=== PATIENT | female | born 1955 | race Caucasian/White ===

== ENCOUNTER 2019-09-24 21:09 | Emergency (ER) | payer BC, SELFPAY ==
[2019-09-24 21:21] VITALS: BP 217/98; PULSE 89; RESP 22; TEMP 36.8; O2SAT 96; BMI 28.8
--- NOTE | 2019-09-24 21:24 | ED_ITS ---
HPI - Allergic Reaction General Chief complaint: Allergic Reaction Stated complaint: penicilin, numb lips, tingling back of throat Time Seen by Provider: 09/24/19 21:15 History of Present Illness HPI narrative: 64-year-old woman who is having an abscess on her left buttock cheek treated. It was I&D and then initially treated with Septra. She went in to have the dressing changed today and culture showed penicillin sensitive strep so she was switched from Septra to penicillin. Within an hour of taking the 1st dose of penicillin she has noticed numbness and tingling around her lips and some tightness through her throat without wheezing, rash or other symptoms. She took 50 mg of Benadryl and reported to the emergency department. Related Data Home Medications Medication Instructions Recorded Confirmed No Known Home Medications 11/24/17 11/24/17 Allergies Allergy/AdvReac Type Severity Reaction Status Date / Time No Known Drug Allergies Allergy Verified 11/24/17 15:49 Review of Systems Review of Systems Narrative: Pertinent positive and negative findings as per HPI Remainder of review of systems is otherwise unremarkable for Constitutional: Fevers, chills, weakness ENT: No sore throat, neck pain, ear pain CV: Chest pain, palpitations, dyspnea on exertion Respiratory: Cough, wheeze, dyspnea GI: Nausea, vomiting, diarrhea, change in bowel habits, black or bloody stools : Dysuria, hematuria, flank pain MS: Muscle weakness, numbness, joint swelling or warmth Skin: Rashes, nonhealing lesions Neuro: Syncope, dizziness, Patient History Medical History Abscess of left buttock (Acute) Acute allergic reaction (Acute) Social History Smoking Status: Never smoker alcohol intake: current (Social) substance use type: does not use Smoking Status: Never smoker Exam Narrative Exam Narrative: General: Alert appropriate in no acute distress HEENT: Normal sclera, reactive pupils, no obvious swelling or induration in the oropharynx or posterior pharynx Respiratory: Able to speak in full sentences, no obvious respiratory distress, no wheezes no rhonchi Skin: No obvious rashes, warm and dry Neurologic: Grossly intact no obvious asymmetries or abnormalities Psych, appropriate insight and affect, cooperative Initial Vital Signs Initial Vital Signs: Vital Signs Temperature 98.3 F 09/24/19 21:21 Pulse Rate 89 09/24/19 21:21 Respiratory Rate 22 09/24/19 21:21 Blood Pressure 217/98 H 09/24/19 21:21 Pulse Oximetry 96 09/24/19 21:21 Course Orders Ordered: Discontinued Medications Prednisone (Deltasone) 60 mg PO NOW ONE Stop: 09/24/19 21:31 Last Admin: 09/24/19 21:33 Dose: 60 mg Documented by: FRANK Vital Signs Vital signs: Vital Signs - 8 hr 09/24/19 21:21 09/24/19 22:01 Temperature 98.3 F Pulse Rate 89 69 Respiratory Rate 22 12 Blood Pressure 217/98 H Blood Pressure [Left Arm] 150/72 H Pulse Oximetry 96 98 MDM - Allergic Reaction MDM Narrative Medical decision making narrative: Patient has an abscess that is been drained was improving culture so penicillin sensitive strep which should be sensitive to Septra as well. With the acute allergic reaction to penicillin, will have her just continue the Septra and routine wound care. Symptoms have completely resolved after the Benadryl and 60 mg of oral prednisone in the emergency department. Because it was a single dose I do not believe that she is going to need additional treatment or steroid taper. Patient is safe for home discharge Discharge Plan Departure Patient Disposition: Home Clinical Impression: Allergic reaction Qualifiers: Encounter type: initial encounter Qualified Code(s): T78.40XA - Allergy, unspecified, initial encounter Instructions: DI for Anaphylaxis Activity Restrictions/Additional Instructions: Thank you for coming in today. You did exactly the right thing by taking Benadryl when he started noticing the tingling in her lips and tightness in the back of your throat. You were given an additional single dose of steroid in the emergency room and continued to improve. Please consider penicillin, the entire family of antibiotics, as an official allergy Please restart the Septra that you have at home and do keep all of your follow- up appointments for the dressing changes for the abscess healing. I hope you continue to heal nicely. Prescriptions: No Action No Known Home Medications RF: 0 Referrals: Malvin Coon ND [Primary Care Provider] -
[2019-09-24] MEDS: predniSONE 20 MG TABLET 60 MG PO (21:33)
[2019-09-24 22:01] VITALS: BP 150/72; PULSE 69; RESP 12; O2SAT 98
== END 2019-09-24 22:10 | disposition home or self-care (01) ==
PROVIDERS: Emergency Provider Emergency Medicine; Family Provider Registered Nurse; PCP Registered Nurse
DX: R20.2 Paresthesia of skin (principal); T36.0X5A Adverse effect of penicillins, initial encounter
CPT/HCPCS: 99283

== ENCOUNTER → 2020-07-27 10:00 | Outpatient (CLI) | payer BC, SELFPAY ==
[2020-07-27] MEDS: COVID-19 VACC #1, MRNA(MOD) 100 MCG/0.5 ML VIAL IM (10:10)
[2020-07-27] MEDS: diphenhydrAMINE 25 MG TABLET 50 MG PO (10:27)
--- NOTE | 2020-07-27 11:49 | PC.NURSE ---
10 27 given 50 mg Benadryl po for c/0 facial numbness ,chest flushing, feeling anxious and blood pressure 237/ 125... taken to ER via wheelchair
== END ==
PROVIDERS: Family Provider Registered Nurse; PCP Registered Nurse; Visit Provider Internal Medicine
DX: Z23 Encounter for immunization (principal)
CPT/HCPCS: 0011A; 91301

== ENCOUNTER 2020-07-27 10:29 | Emergency (ER) | payer BC, SELFPAY ==
[2020-07-27 10:28] VITALS: BP 206/99; PULSE 86; RESP 14; TEMP 36.6; O2SAT 96; BMI 30.6
[2020-07-27] MEDS: predniSONE 20 MG TABLET 60 MG PO (10:34)
[2020-07-27 10:50] VITALS: PULSE 81; O2SAT 96
[2020-07-27 11:00] VITALS: BP 171/78; PULSE 75; O2SAT 95
--- NOTE | 2020-07-27 11:18 | PC.NURSE ---
Pt feeling better,bp improving,tingling in lips is gone and pt feels like her lips are not swollen.
--- NOTE | 2020-07-27 11:45 | ED.ALLEREA ---
HPI - Allergic Reaction General Chief complaint: Allergic Reaction Stated complaint: allergic reaction Time Seen by Provider: 07/27/20 10:31 Source: patient Mode of arrival: Wheelchair Limitations: no limitations History of Present Illness HPI narrative: This is a 65-year-old female comes emergency department with complaint of allergic reaction. Patient her COVID immunization. This was the 1st immunization. This was at about 10 10 or 10 15 she has developed numbness of her lips within 5-10 minutes. Patient was monitored given 2 tablets of Benadryl at the immunization clinic and then referred to us. Patient has not had any additional symptoms. She did know her blood pressure is very high on arrival. Patient states she has had reactions to a flu vaccine in the past with similar tingling and numbness of her lips. She also has noticed that she sometime had tingling in her lips with other exposures such as corn syrup. Patient is also allergic to penicillin which she developed a rash in allergy after a at least a 2nd exposure to penicillin. She denies other medical issues. Patient states that her symptoms have resolved while she has been here. She denies any swelling of her lips, tongue or airway. She denies any swelling in her extremities. No rash. No pruritus. No tingling elsewhere. Patient states with her prior immunization reaction within influenza shot she had tingling received Benadryl and prednisone without any further treatment and her symptoms resolved and never reoccurred. Related Data Home Medications Medication Instructions Recorded Confirmed No Known Home Medications 11/24/17 11/24/17 Allergies Allergy/AdvReac Type Severity Reaction Status Date / Time Penicillins Allergy Verified 07/27/20 10:35 Review of Systems Review of Systems ROS Unobtainable: All systems reviewed & are unremarkable except as noted in HPI and below Patient History Medical History (Updated 07/27/20 @ 12:16 by Abby Yu DO) Abscess of left buttock Acute allergic reaction Social History Smoking Status: Never smoker alcohol intake: current (Social) substance use type: does not use Smoking Status: Never smoker alcohol intake frequency: holidays/special occasions only Substance Use Type: does not use Exam Narrative Exam Narrative: GEN: well nourished, well appearing female, alert and oriented x 3, patient appears to be in mild distress. HEENT: Atraumatic, pupils are equal round reactive to light, extraocular movements are intact, nares are clear, Throat is clear without any exudates, erythema, tonsillar enlargement or uvular deviation, no swelling of the lips, oropharynx or face. HEART: Regular rate and rhythm without murmur, clicks, rubs. LUNGS:Lungs clear to auscultation, no wheezes, rales, crackles, chest moves symmetrically ABD:bowel sounds normal, soft, non-tender, no guarding, rebound, rigidity, no masses noted, no hepatosplenomegaly MSCL: Full range of motion, normal gait NEURO:CN 2-12 intact, sensation normal SKIN: Skin no rash, or other hives noted. Initial Vital Signs Initial Vital Signs: Vital Signs Temperature 97.9 F 07/27/20 10:28 Pulse Rate 86 07/27/20 10:28 Respiratory Rate 14 07/27/20 10:28 Blood Pressure 206/99 H 07/27/20 10:28 Pulse Oximetry 96 07/27/20 10:28 Course Orders Ordered: Discontinued Medications Prednisone (Prednisone 20 Mg Tablet) 60 mg PO NOW ONE Stop: 07/27/20 10:32 Last Admin: 07/27/20 10:34 Dose: 60 mg Documented by: TIFFANYOTESari Vital Signs Vital signs: Vital Signs - 8 hr 07/27/20 10:28 07/27/20 10:50 07/27/20 11:00 Temperature 97.9 F Pulse Rate 86 81 75 Respiratory Rate 14 Blood Pressure 206/99 H 171/78 H Pulse Oximetry 96 96 95 MDM - Allergic Reaction MDM Narrative Medical decision making narrative: Discussed with patient she may have had a reaction to her immunization unclear if it is a true allergic reaction. She did have improvement after Benadryl and prednisone here in the department. Patient was recommended discussed with her physician about whether she should receive the 2nd immunization and would defer that to her in her physician's judgement. I did recommend that she discuss with a [facility] prior to her 2nd vaccine and they may wish to watch her for a longer period of time. Discharge Plan Departure Patient Disposition: Home Clinical Impression: Immunization reaction Instructions: DI for Immunization Reaction-Adult Activity Restrictions/Additional Instructions: Follow with your physician regarding if you should have your 2nd COVID vaccination. You may repeat your Benadryl 1-2 tablets every 6-8 hours if you have any recurrent tingling of your lips. If you have recurrent swelling of her lips, airway, tongue, face, hives or rash, new chest pain, shortness of breath, lightheadedness or passing out, persistent vomiting or other new or concerning symptoms return immediately to the emergency department. Prescriptions: No Action No Known Home Medications RF: 0 Referrals: Malvin Coon ND [Primary Care Provider] -
[2020-07-27 12:34] VITALS: BP 178/86; PULSE 76; RESP 16; O2SAT 96
== END 2020-07-27 12:34 | disposition home or self-care (01) ==
PROVIDERS: Emergency Provider Emergency Medicine; Family Provider Registered Nurse; PCP Registered Nurse
DX: T78.40XA Allergy, unspecified, initial encounter (principal)
CPT/HCPCS: 99283

== ENCOUNTER → 2020-08-24 10:05 | Outpatient (CLI) | payer BC, SELFPAY ==
[2020-08-24] MEDS: COVID-19 VACC #2, MRNA(MOD) 100 MCG/0.5 ML VIAL IM (10:17)
--- NOTE | 2020-08-24 10:41 | PC.NURSE ---
Patient stated that when she received her first Moderna vaccine she experienced numbness of her lips. She had been taken to the ED and received an RX for steroid. For the second vaccine patient was started in the recline in a semi-recumbent position. pre-vaccine blood pressure at 10:13 was 225/106 patient stated she was very nervous. Vaccine administered at 10:17 -- Blood pressure down to 204/88 10:22 - Bp 174/81 10:31 - BP 162/77 10:39 - BP 156/72 Denied numbness of lips or lightheadedness. Stated she felt good. Patient released at 10:45 without problem.
== END ==
PROVIDERS: Family Provider Registered Nurse; PCP Registered Nurse; Visit Provider Internal Medicine
DX: Z23 Encounter for immunization (principal)
CPT/HCPCS: 0012A; 91301

== ENCOUNTER → 2021-12-04 11:45 | Outpatient (CLI) | payer BC, SELFPAY | PROVIDERS: Family Provider Registered Nurse; PCP Registered Nurse; Referring Provider Registered Nurse; Visit Provider Registered Nurse | DX: Z13.820 Encounter for screening for osteoporosis (principal); Z78.0 Asymptomatic menopausal state; M85.89 Other specified disorders of bone density and structure, multiple sites; Z90.710 Acquired absence of both cervix and uterus | CPT/HCPCS: 77080 ==

== ENCOUNTER 2022-09-21 10:41 | Day surgery (SDC) | payer MEDICARE, OTHER, SELFPAY ==
--- NOTE | 2022-09-21 | PATH_ITS ---
[facility] Accession Number: [id number] No. of containers..02 Tissue . 01 Material submitted: . PART A: gastrointestinal site - ANTRUM PART B: esophagus, E-G Junction - GE JUNCTION . 01 Diagnosis: A. Stomach, Biopsy: Gastric antral mucosa with mild chronic inflammation. Negative for Helicobacter organisms by immunohistochemistry. Negative for intestinal metaplasia. Negative for dysplasia or malignancy. . B. Gastroesophageal Junction, Biopsy: Squamocolumnar junctional mucosa with mild reactive features of reflux esophagitis. Negative for specialized intestinal metaplasia on alcian blue stain. Negative for dysplasia or malignancy. [facility] 09/27/2022 1441 Local . 01 Electronically signed: . Natanael Balbuena MD, PhD, Pathologist NPI- [id number] . 01 Gross description: . Part A: ANTRUM: Received in formalin is 1 fragment(s) of penaloza, soft tissue measuring 0.4 x 0.2 x 0.2 cm submitted entirely in 1 cassette(s) Part B: GE JUNCTION: Received in formalin is 1 fragment(s) of penaloza, soft tissue measuring 0.4 x 0.3 x 0.2 cm submitted entirely in 1 cassette(s) /[facility] 09/24/2022 1617 Local . 01 Microscopic: . A. An immunohistochemical stain was performed to evaluate for Helicobacter organisms and is negative. The control stain showed appropriate reactivity. . B. An alcian blue stain is performed to evaluate for specialized intestinal metaplasia, and is negative for goblet cells. A control stain shows appropriate reactivity. . * This test was developed and its performance characteristics determined by [facility]. It has not been cleared or approved by the U.S. Food and Drug Administration. The FDA has determined that such clearance or approval is not necessary. This test is used for clinical purposes. It should not be regarded as investigational or for research. . 01 Pathologist provided ICD-10: K29.70, K20.80 . 01 CPT . 398900, 954061, M87724, 654549 Specimen Comment: A courtesy copy of this report has been sent to [facility] Pathology Performed at: 01 [facility] [address] [place] [address], [place], [place] [id number] MD Fredrick Izquierdo MD Phone: [phone]
[2022-09-21 11:06] VITALS: BP 160/93; PULSE 87; RESP 17; TEMP 36.4; O2SAT 96; BMI 26.9
[2022-09-21] MEDS: LACTATED RINGERS 1,000 ML 42 ML IV (11:16)
--- NOTE | 2022-09-21 12:28 | PM.PREOP ---
Pre-operative Note Interval Note History & Physical reviewed/Exam performed by Physician: Yes Changes to H&P: No H&P completed within 30 days and has changed as indicated here:: Please note this document was completed at 11:40 a.m.
[2022-09-21 12:31] VITALS: BP 104/51; PULSE 69; RESP 16; TEMP 36.2; O2SAT 93
--- NOTE | 2022-09-21 12:34 | P.HP_ITS ---
History of Present Illness History of Present Illness Date Patient Seen: 09/21/22 Time Patient Seen: 11:30 Chief complaint: [facility] Narrative: Ms. Manning presents today for a discussion about screening colonoscopy as well as an EGD.? She sees a naturopathic physician and is relatively healthy: she has had a hysterectomy in 2016 and cholecystectomy in 1988 as well as a torn cartilage repair in the and has never had any issues with anesthesia.? She does have a sensitivity to corn starch and this is a component in many types of pills and so she tries to avoid these since they cause her to have an allergic skin reaction with hives.? She has had an anaphylactic reaction to penicillin with lip tingling and swelling of her throat that required treatment in the emergency room with steroids in 2020. Her last colonoscopy was 10 years ago.? She was told to follow up in 10 years and to her knowledge there were no polyps in her colon was clean and looked good.? She has no family history of colon cancer.? No changes in bowel movements or bleeding from below that is concerning her bowel movements are regular and non concerning to her. She also had an endoscopy the last time she had a colonoscopy here at [facility] and they found a stricture at her esophagus which was dilated.? She was having symptoms that are similar to some upper GI symptoms that she is having currently.? After the dilation, she experienced relief for many years thereafter but especially in the last year or so she feels like the symptoms are getting worse.? Symptoms are: a feeling of sticking at the throat and even sometimes she feels like she can not drink water until the blockage is cleared up which usually involves emesis for her.? Generally, to prevent this type of blockage she needs to eat very slowly and drink a lot of water. She has been managing these symptoms for quite some time now so doesn't feel that the EGD is more urgent that the colonoscopy and prefers to have them done at the same time. The last time she had a colonoscopy she remembers waking up a little and then being very groggy for a long time afterwards.? However she does suspect that she will need another dilation at the time of her endoscopy. [facility] Medical History (Updated 09/21/22 @ 11:27 by Trisha Smith RN) Abscess of left buttock Acute allergic reaction Arthritis Diabetes Hypertension Hypothyroidism Surgical History (Updated 07/31/22 @ 10:12 by Anne Miller RN) Hx of cholecystectomy Hx of hysterectomy Social History household members: none Smoking Status: Never smoker alcohol intake: current substance use type: does not use Meds Home Medications and Allergies Home Medications Medication Instructions Recorded Confirmed Type Glucocare PO 07/31/22 07/31/22 History Gymnema PO 07/31/22 07/31/22 History Insinase PO 07/31/22 07/31/22 History Lipotropic Complex PO 07/31/22 07/31/22 History MetaGlycemX PO 07/31/22 07/31/22 History Spectrazyme Walters 9x ES PO 07/31/22 07/31/22 History Turmeric PO 07/31/22 07/31/22 History cholecalciferol (vitamin D3) 125 125 mcg PO DAILY 07/31/22 09/21/22 History mcg (5,000 unit) capsule liothyronine 5 mcg tablet 5 mcg PO DAILY 07/31/22 09/21/22 History metformin 500 mg tablet 1,000 mg PO DAILY 07/31/22 09/21/22 History peg 3350 240 gram-electrolytes 240 ml PO Q10M #4,000 mL 07/31/22 Rx 22.72 gram-6.72 g-5.84 g powdr for soln (Gavilyte-C) ultraflora PO 07/31/22 History vitamin B12 500 mcg-folic acid 400 1 tab PO DAILY 07/31/22 09/21/22 History mcg tablet vitamins-lipotropics tablet 1 tab PO DAILY 07/31/22 09/21/22 History Allergies Allergy/AdvReac Type Severity Reaction Status Date / Time Penicillins Allergy Severe Swelling Verified 09/21/22 11:02 of Lip/Tongue/Throat sodium chloride for AdvReac Verified 09/21/22 11:02 inhalation [From Saline] Exam Vital Signs (past 8 hours): - 09/21/22 11:06 Temperature 97.5 F L Pulse Rate 87 Respiratory Rate 17 Blood Pressure 160/93 H Pulse Oximetry 96 Oxygen Delivery Method Room Air Oxygen Delivery Method Room Air Const General: cooperative, healthy appearing and comfortable HENMT Head: normal to inspection Eyes General: appearance normal, both eyes and all related structures Resp Effort & Inspection: normal respiratory effort and able to speak in complete sentences Cardio Pulses: radial pulses present GI Palpation: soft and No tender Assessment & Plan Assessment & Plan narrative: Presents today for screening colonoscopy I discussed the risks benefits and alternatives including but not limited to perforation of the colon and an incomplete exam she fully understands these risks and would like to proceed. Also discussed the risks benefits and alternatives of EGD and esophageal dilation including damage and perforation to the esophagus requiring surgical intervention which though rare is a serious and known complication. She understands this risk and would like to proceed.
--- NOTE | 2022-09-21 12:35 | P.OP.EGD&C_ITS ---
Operative Date/Time/Diagnoses Date of procedure: 09/21/22 Time of procedure: 12:35 Pre-op diagnosis: Benign esophageal stricture and history of food impactions; screening colonoscopy Post-op diagnosis: same Procedure & Clinicians Study performed: 1.EGD biopsy and dilation 2. Colonoscopy Same procedure as scheduled: Yes Indications: Screening for colon cancer and history of benign esophageal stricture with some current symptoms Surgeon: Afia Davis Procedure Notes Procedure in detail: Patient was taken to the endoscopy suite and placed supine. Time-out was performed. And conscious sedation was induced with the help of an anesthesio logist. Bite block was placed and the EGD scope was placed into the mouth and advanced through down to the esophagus. The esophagus did seem to have small opening into the stomach otherwise appeared relatively normal. The stomach did appear to have some mild gastritis and there was a biopsy obtained of the gastric antrum. The pylorus was passed and the duodenum examined. Photograph was obtained but it appeared normal. Photographs of the gastric antrum were obtained as well as the GE junction with the scope retroflexed. There was no obvious hiatal hernia. The scope was then withdrawn and biopsy was taken of the GE junction. Next the attic dilator was inserted through the scope. The balloon was inflated to 12 [place]. This was still somewhat loose and then the balloon was inflated to 14 [place] it was held in this position for 60 seconds. When the scope was desufflated there was some mild bleeding at the GE junction, but otherwise it appeared intact. Attention was then turned to the colonoscopy. A digital rectal exam was performed there were no masses or strictures. The colonoscope was introduced into the anal canal and advanced through to the cecum. The prep was good [place] bowel prep score of 2. A photograph of the appendiceal orifice was obtained. The scope was then withdrawn for 11 minutes. No polyps were seen. The scope was then retroflexed and a photograph of the hemorrhoidal piles was obtained and they appeared relatively normal. Patient tolerated the procedure well and went in good condition to the postoperative care unit. Specimen(s): other (1. Gastric antrum 2. GE junction) Complications: none Post-procedure Recommendations: Colonscopy in 10 years Plan for aftercare: Will follow-up on pathology from the EGD. Colonoscopy follow-up can be in 10 years as long as there is no development of concerning symptoms and no one in her family gets colon cancer.
[2022-09-21 12:36] VITALS: BP 114/66; PULSE 68; RESP 15; O2SAT 93
[2022-09-21 12:41] VITALS: BP 110/63; PULSE 71; RESP 14; O2SAT 94
[2022-09-21 12:48] VITALS: BP 131/68; PULSE 71; RESP 20; O2SAT 98
== END 2022-09-21 13:09 | disposition home or self-care (01) ==
PROVIDERS: Family Provider Registered Nurse; PCP Registered Nurse; Referring Provider Surgery; Visit Provider Surgery
PROC: 0DJD8ZZ Inspection of Lower Intestinal Tract, Via Natural or Artificial Opening Endoscopic (ICD-10-PCS; CPT 45378; principal; 2022-09-21 11:45)
PROC: 0DJ08ZZ Inspection of Upper Intestinal Tract, Via Natural or Artificial Opening Endoscopic (ICD-10-PCS; CPT 43235; 2022-09-21 11:45)
DX: Z12.11 Encounter for screening for malignant neoplasm of colon (principal); K22.2 Esophageal obstruction; K29.50 Unspecified chronic gastritis without bleeding
CPT/HCPCS: 43249; 43239; G0121; J2704